=== PATIENT | female | born 1935 | race Asian ===

== ENCOUNTER 2016-11-18 17:31 | Emergency (ER) | payer MEDICARE ==
[~2016-11-18] VITALS: Ht 147.3 cm; Wt 43.5 kg
[2016-11-18] MEDS ORDERED: Tetanus/Diptheria/Pertussis Vaccine 0.5ml Syr IM ONE (18:15)
[2016-11-18] MEDS ORDERED: Lidocaine 1% MPF 10mg/ml 5ml INJ ONE (18:15)
[2016-11-18] MEDS ORDERED: Bacitracin Oint UD TOPIC ONE (18:15)
[2016-11-18] MEDS ORDERED: CEPHALEXIN500 MG ORAL (19:49)
[2016-11-18] MEDS ORDERED: IBUPROFEN600 MG ORAL (19:49)
[2016-11-18 20:07] VITALS: BP 181/91
--- NOTE | 2016-11-18 21:21 | Emergency Room Report ---
History of Present Illness General Chief Complaint: Upper Extremity Injury Source: Family Member Present Illness HPI The patient is a 80-year-old female presenting for injury to the right fifth finger. She states that she tripped and fell onto her right hand. She denies hitting head or loss of consciousness. She is accompanied by son who confirms this. She noticed pain and bleeding to the right fifth digit described as an 8/10 dull ache. Does not radiate. She states that she is currently unable to move the finger. She denies any numbness or tingling. 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 Hx Hypertension: Yes Hx Cerebrovascular Accident: Yes Review of Systems All Other Systems: negative except mentioned in HPI Physical Exam Vital Signs Date Time Temp Pulse Resp B/P (MAP) Pulse Ox O2 Delivery O2 Flow Rate FiO2 11/18/16 17:51 97.5 59 14 187/96 96 Room Air Sp02 EP Interpretation: reviewed, normal General Appearance: no apparent distress, alert, GCS 15, non-toxic Head: normocephalic, atraumatic Eyes: bilateral eye normal inspection, bilateral eye PERRL Musculoskeletal: decreased range of motion - R 5th DIPJ, tender - TTP over the R 5th DIPJ Neurologic: alert, oriented x3, responsive, motor strength/tone normal, sensory intact, speech normal Psychiatric: judgement/insight normal, memory normal, mood/affect normal, no suicidal/homicidal ideation Skin: laceration - irregular laceration to palmar surface of R 5th digit distal to DIPJ Lymphatic: no adenopathy Procedures Splinting Splinting : Consent: Verbal Location: R 5th digit Pre-Made Type: metal Splint: metal finger Pre-Proc Neuro Vasc Exam: normal Post-Proc Neuro Vasc Exam: normal Patient Tolerated: Well Complications: None Joint Reduction Joint Reduction : Consent: Verbal Joint Reduction Site: other - R 5th DIPJ Procedural Sedation: No Reduction Attempts: One Pre-Procedure NV Exam: Yes Post-Procedure NV Exam: Yes Post Joint Reduction Film: joint reduced Patient Tolerated: Well Complications: None Laceration/Wound Repair Laceration/Wound Repair : Consent: Verbal Wound Location: upper extremity Wound's Depth, Shape: superficial, irregular, contused tissue Wound Length (cm): 2 Wound Explored: clean Irrigated w/ Saline (ccs): 100 Betadine Prep?: Yes Anesthesia: 1% Lidocaine Volume Anesthetic (ccs): 5 Wound Debrided: minimal Wound Repaired With: sutures Suture Size/Type: 4:0, proline Number of Sutures: 3 Layer Closure?: No Sterile Dressing Applied?: Yes Splint Applied?: Yes Type of Splint Applied: metal finger Sling Applied?: No Patient Tolerated: Well Complications: None Medical Decision Making PA Attestation Dr. Pryor is my supervising physician. Patient management was discussed with my supervising physician Diagnostic Impression: Primary Impression: Dislocation of finger Qualified Codes: S63.259A - Unspecified dislocation of unspecified finger, initial encounter Additional Impression: Laceration of finger Qualified Codes: S61.316A - Laceration without foreign body of right little finger with damage to nail, initial encounter ER Course The patient is a 80-year-old female presenting for injury to the right fifth finger. Ddx considered include but not limited to sprain/strain, fracture, contusion, laceration, open fracture, dislocation, among others PE: NAD Right fifth DIP joint reveals deformity in extension. Sensation is intact. Cap refill less than 2 seconds. Tenderness to palpation over the DIP joint with a laceration over the palmar surface X-ray of the right hand reveals dislocation at the right fifth DIP joint The wound was irrigated with normal saline and cleaned with betadine. A 27g needle was used to administer 5mL of lidocaine w.o epi for digital block. 3 sutures were placed with 4-0 prolene. The wound was better approximated and the patient tolerated the procedure well. The wound was then cleaned and bacitracin was applied. One reduction attempt with traction reduced the R 5th DIPJ. A metal finger splint was applied The patient will continue to keep the wound clean and dry and will followup with PMD. Suture instructions provided. ER precautions are given She will be placed on antibiotics. Other X-Ray Diagnostic Results Other X-Ray Diagnostic Results #1: X-Ray ordered: R hand # of Views/Limited Vs Complete: 3 View Indication: Pain EP Interpretation: Yes Interpretation: no soft tissue swelling, no fractures, other - + dislocation R 5th DIPJ Impression: Other - dislocation Interpreting ER Provider: MD LINDA Plasencia Scribe Text I am acting as scribe for my supervising physician. My supervising physician's interpretation of the R hand xrays are there are no fractures. There is a fracture of the 5th DIPJ Other X-Ray Diagnostic Results #2: X-Ray ordered: R hand post reduction # of Views/Limited Vs Complete: 3 View Indication: Pain EP Interpretation: Yes Interpretation: no dislocation, no soft tissue swelling, no fractures Impression: Other - reduced Interpreting ER Provider: MD LINDA Plasencia Scribe Text I am acting as scribe for my supervising physician. My supervising physician's interpretation of the R hand xrays are there are no fractures, dislocations or soft tissue swelling. Last Vital Signs Date Time Temp Pulse Resp B/P (MAP) Pulse Ox O2 Delivery O2 Flow Rate FiO2 11/18/16 20:07 65 14 181/91 97 Room Air 11/18/16 20:07 97.3 Status: improved Disposition: HOME, SELF-CARE Condition: Improved Scripts Ibuprofen* (MOTRIN*) 600 Mg Tablet 600 MG ORAL Q6H Y for For Pain, #30 TAB Prov: EPIFANIO EPSTEIN P.A. 11/18/16 Cephalexin* (KEFLEX*) 500 Mg Capsule 500 MG ORAL EVERY 12 HOURS, #14 CAP 0 Refills Prov: JASSIANEPIFANIO P.A. 11/18/16 Patient Instructions: Laceration Care, Adult, Finger or Thumb Dislocation Additional Instructions: I discussed my findings with the patient. All questions and concerns have been answered. Treatment and medication compliance have been addressed. I advised the patient that they need to follow up with PMD in 7 days for wound check and suture removal. If you are unable to see PMD, return to the ED in 7 days. Return to ED if pain remains or worsens, you notice discharge from the wound, the wound continues to bleed, the suture/s fall out, you notice a fever or chills, or for any reason. Patient is advised to keep the wound clean and dry. Patient verbalized understanding of discharge instructions. EPIFANIO EPSTEIN Nov 18, 2016 21:21
--- NOTE | 2016-11-20 08:47 | Diagnostic Imaging Report ---
Indication: PAIN Technique: 3 views right hand Comparison: none Findings: There is a posterior dislocation of the fifth distal interphalangeal joint. No definite associated fracture. No acute fracture demonstrated. Bones are osteoporotic. The joint spaces are preserved. Impression: Positive for fifth distal interphalangeal joint dislocation Osteoporotic change This agrees with the preliminary interpretation provided overnight by [facility] service.
--- NOTE | 2016-11-20 08:58 | Diagnostic Imaging Report ---
Indication: PAIN Technique: 3 views right hand Comparison: One hour earlier Findings: Interim reduction of previously demonstrated fifth distal interphalangeal joint dislocation. No associated fracture demonstrated. Bones are osteoporotic. No other acute fracture or dislocation. Impression: Interim successful reduction of previously demonstrated distal interphalangeal joint dislocation
== END 2016-11-18 20:10 | disposition home or self-care (01) ==
LOC: EMR 19:09
DX: S63.296A Dislocation of distal interphalangeal joint of right little finger, initial encounter (principal); S61.216A Laceration without foreign body of right little finger without damage to nail, initial encounter; W01.0XXA Fall on same level from slipping, tripping and stumbling without subsequent striking against object, initial encounter; Y92.9 Unspecified place or not applicable; Z23 Encounter for immunization; I10 Essential (primary) hypertension; Z86.73 Personal history of transient ischemic attack (TIA), and cerebral infarction without residual deficits
CPT/HCPCS: 29130; 90471; 90715; 99284